=== PATIENT | female | born 1955 ===

== ENCOUNTER 2023-07-10 05:35 | Day surgery (SDC) | payer OTHER ==
[~2023-07-10 05:35] MED LIST: VASOTEC20 M1 PO
[2023-07-10] MEDS ORDERED: CEFAZOLIN SODIUM 1,000 MG VIAL ONE (09:25)
[2023-07-10] MEDS ORDERED: CEFAZOLIN SODIUM 1,000 MG VIAL IV ONE (10:30)
[2023-07-10] MEDS ORDERED: ONDANSETRON HCL 2 MG/ML VIAL ONE (12:59)
[2023-07-10] MEDS ORDERED: ONDANSETRON HCL 2 MG/ML VIAL IV ONE (13:00)
[2023-07-10] MEDS ORDERED: MORPHINE SULFATE 4 MG/ML VIAL IV ONE (14:35)
== END 2023-07-10 16:05 | disposition home or self-care (01) ==
LOC: CIR.AMB 05:35
PROVIDERS: ATTEND Orthopaedic Surgery Hand Surgery
DX: S52.531A Colles' fracture of right radius, initial encounter for closed fracture (principal); Z20.822 Contact with and (suspected) exposure to COVID-19; I10 Essential (primary) hypertension
CPT/HCPCS: 25609; 25118; 25280; L8699